=== PATIENT | female | born 1980 | race Caucasian/White ===

== ENCOUNTER 2018-09-03 10:19 | Day surgery (SDC) | payer OTHER ==
[2018-09-03] MEDS ORDERED: MIDAZOLAM 1 MG/ML 2 ML INJ ×2 (12:54)
[2018-09-03] MEDS ORDERED: FENTAnyl 50 MCG/ML VIAL (12:54)
== END 2018-09-03 13:42 | disposition home or self-care (01) ==
LOC: GIL 10:19
DX: D12.4 Benign neoplasm of descending colon (principal)
CPT/HCPCS: 45385; 84703; 88305

== ENCOUNTER 2018-10-02 07:58 | Day surgery (SDC) | payer OTHER ==
[2018-10-02] MEDS ORDERED: LIDOCAINE 4% SOLUTION 50 ML BTL (09:51)
[2018-10-02] MEDS ORDERED: FENTAnyl 50 MCG/ML VIAL (10:29)
[2018-10-02] MEDS ORDERED: MIDAZOLAM 1 MG/ML 2 ML INJ ×3 (10:29)
== END 2018-10-02 15:45 | disposition home or self-care (01) ==
LOC: GIL 07:58
DX: K29.50 Unspecified chronic gastritis without bleeding (principal)
CPT/HCPCS: 43239; 88305; 88312